=== PATIENT | female | born 1945 | race Caucasian/White ===

== ENCOUNTER → 2016-09-29 | Outpatient (CLI) | payer MEDICARE, OTHER ==
[~2016-09-29] MED LIST: CERTAGEN PO; EVISTA60 MG PO; LOVAZA PO; MOBIC PO; NASONEX17 GM; PHENERGAN PO; SYNTHROID PO; ULTRAM PO; ZYRTEC-D T1 TAB.SR . PO
--- NOTE | ~2016-09-29 | BD1 ---
[facility] A Service of [facility] & [facility] RADIOLOGY TEXT RESULTS PATIENT: YAMILEX UMANA LOCATION: [facility] : 41 UNIT #: [id number] AGE: [address]: Harvey Romeo MD SEX: F ORDER DR: [id number] [facility] [address] [place], [place] [address] [id number] O MR#: [id number] Acc #: [id number] NAME: YAMILEX UMANA : 1945 SEX: F STUDY DATE/TIME: 09/29/2016 9:37 UNIT: [facility] ROOM: STUDY DESCRIPTION: BD Dexa Bone Dens 1+ Site Attending Physician: Harvey Romeo Jr., M.D. Ordering Physician: Harvey Romeo Jr., M.D. Primary Care Physician: Harvey Romeo Jr., M.D. MEDICAL IMAGING REPORT This report is preliminary unless electronic signature is present EXAM DXA scan 09/29/2016 HISTORY Status post menopause with no hormone replacement therapy. Osteopenia. Family history of breast carcinoma in mother and grandmother. Arthritis. Thyroid medication for 12 years. Hypertension with blood pressure medication for 7 years. Family history of osteoporosis in maternal grandmother. FINDINGS Bone mineral density in the lumbar spine from L1-L4 is 1.243 g/cm2 which is 1.8 standard deviations above the mean when compared to the young adult reference population which is within the range of normal. This is 4.1 standard deviations above the mean when compared to the age-matched population. Bone mineral density in the left hip was 0.85 g/cm2 which is 0.8 standard deviations below the mean when compared to the young adult reference population which is within the range of normal. This is 0.9 standard deviations above the mean when compared to the age-matched population. IMPRESSION Bone mineral density in the lumbar spine and left hip within the range of normal. Dictated by... Delgado Stevenson M.D. THIS IS AN ELECTRONICALLY VERIFIED REPORT Delgado Stevenson M.D. at 09/29/2016 4:54 PM [facility] A Service of [facility] & [facility] RADIOLOGY TEXT RESULTS PATIENT: YAMILEX UMANA LOCATION: [facility] : 41 UNIT #: [id number] AGE: [address]: Harvey Romeo MD SEX: F ORDER DR: TD: 09/29/2016 14:41 JOB #: [id number] MEDICAL IMAGING REPORT Page 1 of 1 COPY
== END | disposition home or self-care (01) ==
LOC: CWCC 09-25 13:30
DX: Z13.820 Encounter for screening for osteoporosis (principal); Z78.0 Asymptomatic menopausal state
CPT/HCPCS: 77080